=== PATIENT | female | born 1960 | race African-American/Black ===

== ENCOUNTER 2017-04-07 22:49 | Emergency (ER) | payer OTHER ==
[~2017-04-07] VITALS: Ht 177.8 cm; Wt 145.2 kg
--- NOTE | ~2017-04-07 | EKG ---
[place] [address] [facility] [place] [address] ELECTROCARDIOGRAM REPORT Name: ALEJANDRA IBRAHIM Room #: DEP FRANSISCO Ramsey#: [id number] Admission: 04/07/17 Attend Phys: Discharge: 04/08/17 Date of : 58 Report #: [id number] THIS REPORT FOR: //name// [facility] ED Test Date: 2017-04-07 Test Time: 22:56:18 Pat Name: ALEJANDRA IBRAHIM Department: Room: Gender: F Cook Roast: MZOOK : 1960 Requested By: Quinn Cortez Order Number: [id number] MD: Sukhi Pierce Measurements Intervals [place] Rate: 94 P: 71 DE: 169 QRS: 14 QRSD: 81 T: 52 QT: 404 QTc: 506 Interpretive Statements Sinus rhythm Borderline prolonged QT interval No previous ECG available for comparison Electronically Signed On 04-08-2017 8:52:47 BUSINESS PROCESS COORDINATOR by Sukhi Pierce [email or web address] <ELECTRONICALLY SIGNED> By: Sukhi Pierce MD, [facility] 04/08/17 [id number] Sukhi Pierce MD, FAC /EPI
[~2017-04-07 22:49] MED LIST: COZAAR 50 MG TA50 M2 PO; LEVEMIR FL100 UNIT/2 SQ; METFORMIN HCL500 MG PO; NEXIUM40 MG PO; NORCO 5-325 TA1 EACH PO; NOVOLOG100 UNIT/1 SUBQ; OXYBUTYNIN 5 MG5 M1 PO; VALIUM2 MG PO
[2017-04-07] MEDS ORDERED: ASPIR 8181 MG PO (22:57)
[2017-04-07] MEDS ORDERED: VITAMIN D2000 UNIT PO (22:57)
[2017-04-07] MEDS ORDERED: MULTIPLE VITAM1 EAC2 PO (22:58)
[2017-04-07 23:34] LABS: URINE BILIRUBIN NEGATIVE (Negative); URINE BLOOD NEGATIVE (Negative); URINE CLARITY CLEAR; URINE COLOR YELLOW; URINE GLUCOSE-RANDOM* 2+ (Negative); URINE KETONES TRACE (Negative); URINE LEUKOCYTES-REFLEX NEGATIVE (Negative); URINE NITRITE-REFLEX NEGATIVE (Negative); URINE PROTEIN (DIPSTICK) NEGATIVE (Negative); URINE SPECIFIC GRAVITY >= 1.030 (1.005-1.035); URINE UROBILINOGEN 0.2 E.U./dl (0.2-1.0)
[2017-04-07 23:52] LABS: HEMATOCRIT 41.2 % (37.0-47.0); HEMOGLOBIN 13.3 gm/dL (12.0-15.0); MCH 26.5 pg (26.0-34.0); MCHC 32.2 g/dL (28.0-37.0); MCV 82.1 fL (80.0-100.0); RBC 5.02 mil/uL (4.20-5.00); RDW 14.6 % (10.5-14.5)
[2017-04-07 23:57] LABS: ANION GAP 9 mmol/L (7-16); BUN 21 mg/dL (7-18); CALCIUM 9.7 mg/dL (8.5-10.1); CHLORIDE 97 mmol/L (98-107); CO2 27 mmol/L (21-32); CREATININE 1.5 mg/dL (0.6-1.0); GLUCOSE 359 mg/dL (74-106); POTASSIUM 4.4 mmol/L (3.5-5.1); SODIUM 133 mmol/L (136-145)
[2017-04-08 00:06] LABS: ALBUMIN 3.6 g/dL (3.4-5.0); SGOT 18 U/L (15-37); SGPT 19 U/L (30-65); TOTAL BILIRUBIN 0.4 mg/dL (<0.1-1.0); TOTAL PROTEIN 7.4 g/dL (6.4-8.2); TROPONIN-I < 0.04 ng/mL (<0.06)
[2017-04-08] MEDS ORDERED: FLEXERIL PO (00:16)
[2017-04-08] MEDS ORDERED: ZPAK PO (00:20)
[2017-04-08] MEDS ORDERED: AUGMENTIN 875-1 EACH PO (19:31)
[2017-04-08] MEDS ORDERED: HUMALOG KW100 UNIT/1 SUBQ (19:47)
== END 2017-04-08 00:29 | disposition home or self-care (01) ==
LOC: ER 22:49
PROVIDERS: Emergency Medicine
DX: J98.8 Other specified respiratory disorders (principal); M54.9 Dorsalgia, unspecified; R07.89 Other chest pain; M79.621 Pain in right upper arm; E11.9 Type 2 diabetes mellitus without complications; K21.9 Gastro-esophageal reflux disease without esophagitis; I10 Essential (primary) hypertension; F17.210 Nicotine dependence, cigarettes, uncomplicated; Z79.4 Long term (current) use of insulin

== ENCOUNTER 2017-04-08 17:13 | Emergency (ER) | payer OTHER ==
[~2017-04-08] VITALS: Ht 177.8 cm; Wt 145.2 kg
--- NOTE | ~2017-04-08 | EKG ---
[place] [address] [facility] [facility] [place] [address] ELECTROCARDIOGRAM REPORT Name: ALEJANDRA IBRAHIM Room #: DEP FRANSISCO Ramsey#: [id number] Admission: 04/08/17 Attend Phys: Discharge: 04/08/17 Date of : 58 Report #: [id number] THIS REPORT FOR: //name// [facility] ED Test Date: 2017-04-08 Test Time: 17:23:27 Pat Name: ALEJANDRA IBRAHIM Department: Room: Gender: F Shipping Processor: PAWEL : 1960 Requested By: Quinn Cortez Order Number: [id number] MD: Measurements Intervals [employer] Rate: 93 P: 56 CA: 172 QRS: 19 QRSD: 81 T: 75 QT: 376 QTc: 468 Interpretive Statements Sinus rhythm Probable left atrial enlargement Minimal ST elevation, anterior leads Compared to ECG 04/07/2017 22:56:18 ST (T wave) deviation now present [email or web address] By: 1723 1723 Epiphany Epiphany, /EPI
[~2017-04-08 17:13] MED LIST changes: +ASPIR 8181 MG PO; +FLEXERIL PO; +MULTIPLE VITAM1 EAC2 PO; +VITAMIN D2000 UNIT PO; +ZPAK PO
[2017-04-08] MEDS ORDERED: AUGMENTIN 875-1 EACH PO (19:31)
[2017-04-08] MEDS ORDERED: HUMALOG KW100 UNIT/1 SUBQ (19:47)
== END 2017-04-08 20:25 | disposition home or self-care (01) ==
LOC: ER 17:13
DX: J06.9 Acute upper respiratory infection, unspecified (principal); I10 Essential (primary) hypertension; E11.9 Type 2 diabetes mellitus without complications; K21.9 Gastro-esophageal reflux disease without esophagitis

== ENCOUNTER 2018-04-24 19:45 | Emergency (ER) | payer OTHER ==
[~2018-04-24] VITALS: Ht 180.3 cm; Wt 163.3 kg
[~2018-04-24 19:45] MED LIST changes: +AUGMENTIN 875-1 EACH PO; +HUMALOG KW100 UNIT/1 SUBQ
[2018-04-24 23:56] LABS: URINE BILIRUBIN NEGATIVE (Negative); URINE BLOOD TRACE (Negative); URINE CLARITY CLEAR; URINE COLOR YELLOW; URINE GLUCOSE-RANDOM* 3+ (Negative); URINE KETONES NEGATIVE (Negative); URINE LEUKOCYTES-REFLEX NEGATIVE (Negative); URINE NITRITE-REFLEX NEGATIVE (Negative); URINE PROTEIN (DIPSTICK) 1+ (Negative); URINE SPECIFIC GRAVITY 1.015 (1.005-1.035); URINE UROBILINOGEN 0.2 E.U./dl (0.2-1.0)
[2018-04-25 00:08] LABS: BACTERIA-REFLEX 1-9 Few /HPF (None Seen); CASTS None Seen /LPF (None Seen); CRYSTALS None Seen /LPF (None Seen); MUCUS 0-3 Light strn/LPF (None Seen); SQUAMOUS 4-10 Moderate /LPF (0-3); URINE RBC 0-2 Rare /HPF (0-2); URINE WBC-REFLEX 0-5 Rare /HPF (0-5)
[2018-04-25] MEDS ORDERED: MUCINEX DM ER1 EACH PO (00:17)
[2018-04-25] MEDS ORDERED: TESSALON PERLE100 MG PO (00:17)
[2018-04-25] MEDS ORDERED: PROMETHAZINE V120 ML PO (00:17)
[2018-04-25] MEDS ORDERED: PROMETHAZINE-C473 ML PO (00:22)
[2018-04-25 00:57] VITALS: BP 197/100
== END 2018-04-25 00:58 | disposition home or self-care (01) ==
LOC: ER 19:45
PROVIDERS: Emergency Medicine
DX: J04.0 Acute laryngitis (principal); E11.9 Type 2 diabetes mellitus without complications; K21.9 Gastro-esophageal reflux disease without esophagitis; I10 Essential (primary) hypertension; Z98.890 Other specified postprocedural states; F17.210 Nicotine dependence, cigarettes, uncomplicated